=== PATIENT | male | born 1990 | race Caucasian/White ===

== ENCOUNTER 2023-11-05 01:22 | Emergency (ER) | payer BC ==
[~2023-11-05] VITALS: Ht 182.9 cm; Wt 81.6 kg
[2023-11-05] MEDS ORDERED: LIDOCAINE 2%-EPI 1:100,000 20 ML VIAL ONE (02:21)
[2023-11-05] MEDS: LIDOCAINE 2%-EPI 1:100,000 20 ML VIAL IJ ONE (02:30)
[2023-11-05] MEDS ORDERED: TRANEXAMIC ACID 1,000 MG/10 ML VIAL ONE (02:48)
[2023-11-05 03:04] LABS: BASOPHILS % (AUTO) 0.6 % (0.0-2.0); EOSINOPHILS # (AUTO) 0.1 K/uL (0.0-0.7); EOSINOPHILS % (AUTO) 1.3 % (0.0-7.0); HEMATOCRIT 37.9 % (36.7-47.1); HEMOGLOBIN 13.2 g/dL (12.5-16.3); LYMPHOCYTES # (AUTO) 2.1 K/uL (0.8-4.8); LYMPHOCYTES % (AUTO) 30.5 % (20.5-51.5); MEAN CORPUSCULAR HEMOGLOBIN 29.3 uug (23.8-33.4); MEAN CORPUSCULAR HGB CONC 35 g/dL (32.5-36.3); MEAN CORPUSCULAR VOLUME 84.2 fL (73.0-96.2); MONOCYTES # (AUTO) 0.5 K/uL (0.1-1.30); MONOCYTES % (AUTO) 7.5 % (0.0-11.0); NEUTROPHILS # (AUTO) 4.1 K/uL (1.8-8.9); NEUTROPHILS % (AUTO) 60.1 % (38.5-71.5); PLATELET COUNT (AUTO) 202 K/uL (152-348); RED CELL DISTRIBUTION WIDTH 12.4 % (12.1-16.2); WHITE BLOOD COUNT (AUTO) 6.9 K/uL (3.6-10.2)
[2023-11-05 03:11] LABS: CALCIUM 8.5 mg/dL (8.5-10.1); CREATININE 0.9 mg/dL (0.6-1.3); DIFFERENTIAL COMMENT 1; POTASSIUM 3.8 mmol/L (3.5-5.1)
[2023-11-05] MEDS: TRANEXAMIC ACID 1,000 MG/10 ML VIAL IV ONE (03:16)
[2023-11-05] MEDS: IV NORMAL SALINE 1000 ML BAG IV ONE (03:16)
[2023-11-05 05:01] VITALS: BP 124/80; TEMP 98; O2SAT 100
== END 2023-11-05 05:02 | disposition home or self-care (01) ==
LOC: ER 01:31
DX: K91.841 Postprocedural hemorrhage of a digestive system organ or structure following other procedure (principal)
CPT/HCPCS: 99291; 96374; 96361; 80048; 85025; 36415; J7040; A4606; A4663